=== PATIENT | female | born 1960 | race Caucasian/White ===

== ENCOUNTER 2024-07-11 13:09 | Outpatient (AMB) | payer OTHER, SELFPAY ==
--- NOTE | 2024-07-11 13:32 | HO.SPINEOV ---
Vital Signs 07/11/24 13:57 Height 5 ft 2.75 in Weight 155 lb BMI 27.7 Intake Visit Reasons: LBP Intake Note: Ms. Panda is here today c/o Low back pain that radiates to the right foot. [employer] Required: No Allergies oxycodone Allergy (Severe, Verified 07/11/24 13:58) Rash Physical Exam Vital Signs: BMI result Body Mass Index 27.7 Assessment & Plan Assessment & Plan (1) Lumbar disc herniation with radiculopathy: Code(s): M51.16 - Intervertebral disc disorders with radiculopathy, lumbar region Category: Medical Plan Dear colleague Thank you for referring Rochelle Panda to the office today with a chief complaint of severe right leg pain, numbness and weakness. HPI: This 63-year-old female has a history of manageable back pain where she sporadically throws her back out. Her clinical situation changed on 06/30/2024. She was watching a soccer game of her grand child when she stood up and twisted her back. She immediately felt a pop and was in bed for a week due to severe back pain radiating down to her right leg and top of her foot. This is the 1st time that she experience radicular pain. The pain is very difficult to manage. She uses multiple pain medications including gabapentin, ibuprofen, Suzetrigine, lidocaine patch and a muscle relaxant. She is going to start physical therapy on Tuesday but is pessimistic if she can perform this. A epidural steroid injection was tried for back pain in the past after which she developed an [place] crisis which result in long-term steroid therapy. Therefore, another steroid injection is not an option. She also notices that she has tingling and weakness of her right foot. Yesterday was the 1st time that she had paresthesias in both legs. 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 PMH: Hyperlipidemia, GERD, anxiety depression, asthma Medications: Albuterol p.r.n., atenolol, atorvastatin, furosemide, gabapentin, ibuprofen, lidocaine patches, methocarbamol, levocetirizine, sumatriptan Allergies: Oxycodone Social history: Nonsmoker Physical Exam: Pleasant female in obvious agony. She has an antalgic posterior towards the left side. Straight leg raise on the right is positive with radiating pain to the outside of her lower leg at 30 degrees. There is sensory loss in an L5 dermatome on the right side. There is a grade 4 minus out of 5 weakness of the extensor hallucis longus on the right side. She walks with an antalgic gait Radiological Studies: MRI of the lumbar spine done at [facility] on 07/02/2024 was compared to an MRI of 04/04/2023 and shows a new central L4-5 disc herniation that is eccentric towards the right side and compressing the right L5 nerve root. In addition, there is a stable L5-S1 degenerative disc disease. Impression/Plan: This patient is suffering from a L4-5 disc herniation compressing the right L5 nerve root causing radiculopathy with neurological deficits. I recommended a lumbar microdiskectomy. She is tentatively scheduled for 08/01/2024. She will obtain preoperative clearance from her primary care physician. Thank you for allowing me to participate in your patients care. total time spent was 50 minutes in counseling ,coordination of plan, personal review of imaging, surgical decision making and subsequent plan Poncho Araujo MD, PhD Sp[facility] Trained Neurosurgeon Director, [facility] Coding Level of Care Code New Pt Level 4 (36246) Diagnoses Lumbar disc herniation with radiculopathy M51.16
[2024-07-11 13:57] VITALS: BMI 27.7
--- OUTSIDE RECORDS SUMMARY | 2024-07-11 15:38 | XMS_ITS | Continuity of Care Document ---
Author Organization [facility] [address] [place] [address] Phone [phone] Care Team Providers Care Custodian Manager Name Role Phone Juan M Urbina PA-C Care Team Information Cost And Sales Record Supervisor [phone] Social History Type Date Description Comments Sex Unknown Medical Devices Description No Information Available Encounters Description No Information Available Assessments Description No Information Available Plan of Treatment No Information Available Functional Status Description No Information Available Mental Status Description No Information Available Referrals Description No Information Available
== END 2024-07-11 14:50 | disposition home or self-care (01) ==
LOC: HO.HNS 13:09
PROVIDERS: Visit Provider Neurological Surgery
DX: M51.16 Intervertebral disc disorders with radiculopathy, lumbar region (principal)
CPT/HCPCS: 99204

== ENCOUNTER → 2024-07-11 13:09 | Outpatient (BNVA) | payer OTHER, SELFPAY | PROVIDERS: Visit Provider Neurological Surgery ==

== ENCOUNTER 2024-08-15 06:46 | Day surgery (SDC) | payer OTHER, SELFPAY ==
[2024-07-31 12:45] VITALS: BMI 26.4
--- OUTSIDE RECORDS SUMMARY | 2024-07-31 15:06 | XMS_ITS | Data Portability ---
Author Organization [place] - [place] [facility], [facility] Contract Runner Address [address] [place] [address] Assessment No assessment recorded. Plan of Treatment Reminders Order Date Submit Date Provider Last Modified By Organization Details Last Modified Time Details Appointments None recorded. Lab streptococ cus group A RNA 2021 MECHE In-Office Order, Internal Use Only DO Not Attach Compendium DO Not Attach Compendium, Do Not Delete/merge, [id number] 09:51:48 culture, throat 2021 [facility] Draw Station [facility] [place], [address] [place], [address], 12:00:50 influenza virus A+B RNA, FAISAL+probe, isolate 2021 MECHE In-Office Order, Internal Use Only DO Not Attach Compendium DO Not Attach Compendium, Do Not Delete/merge, [id number] 09:51:17 respirator y syncytial virus RNA, QL, FAISAL, isolate 2021 MECHE In-Office Order, Internal Use Only DO Not Attach Compendium DO Not Attach Compendium, Do Not Delete/merge, [id number] 09:51:30 SARS CoV 2 RNA, QL, FAISAL+probe, respirator y specimen 2021 M[facility]HE In-Office Order, Internal Use Only DO Not Attach Compendium DO Not Attach Compendium, Do Not Delete/merge, [id number] 09:50:57 SARS CoV 2 RNA, QL, FAISAL+probe, respirator y specimen 2021 022 [email or web address] 4 In-Office Order, Internal Use Only DO Not Attach Compendium DO Not Attach Compendium, Do Not Delete/merge, [id number] 2 20:10:43 SARS CoV 2 RNA, QL, FAISAL+probe, respirator y specimen 2020 021 [email or web address] In-Office Order, Internal Use Only DO Not Attach Compendium DO Not Attach Compendium, Do Not Delete/merge, [id number] 14:37:31 SARS CoV 2 RNA (COVID-19) , QL, notereader-PCR, [place]. [id number], pt status: OUTPATIENT 2020 [facility], [address] [place] [address], [address], 19:21:11 Referral None recorded. Procedures None recorded. Surgeries None recorded. Imaging None recorded. Medication Orders None recorded. Patient TargetsNo targets recorded. Patient InstructionsNo instructions recorded. Reason for Referral None Reported. Results Created Date Observation Date Name Description Value Unit Range Abnormal Flag Note LastModifiedBy Organization Detail LastModifiedTime 08/31/19 22 08/29/2021 SARS COV 2 RNA(C OVID 19), QUALI TATIV E NAAT sars cov 2 RNA NOT DETECT ED not detect ed normal A Not Detec estrellita resul t means that SARS- CoV-2 RNA was not prese nt in the speci men above the limit of detec tion. A Not Detec estrellita resul t does not rule out the possi bilit y of COVID -19 and shoul d not be used as the sole basis for treat ment or patie nt manag ement decis ions. If COVID -19 is still suspe cted, based on expos ure histo ry toget her with other clini lewis findi ngs, re-te sting shoul d be consi dered in the yunior xt of clini lewis obser vatio ns and epide miolo gical data for patie nt manag ement decis ions. Test Metho d: Nucle ic Acid Ampli ficat ion Test inclu ding rever se trans cript ion polym erase chain react ion (RT-P CR) and trans cript ion media estrellita ampli ficat ion (TMA) . The test metho d meets the [place] Cente rs for Disea se Contr ol and preve ntion ([facility]) pre depar ture and arriv al requi remen t for viral test for COVID -19 dated 2020. Testi ng requi remen ts for rizwan lam may capps e with time. The patie nt is respo nsibl e for deter minin g the test requi remen ts for each natio n while they are rizwan lam. This test has been autho rized by the FDA under an Emerg ency Use Autho rizat ion (EUA) for use by autho rized labor atori es. Nichol le w the Fact Sheet s and FDA autho rized label ing avail able for healt h care provi ders and patie nts using the follo wing websi anna: https ://yesenia w.que stdia gnost ics.c om/ho me/Co vid-1 9/HCP /Ques tLDT/ fact- sheet .html https ://yesenia w.que stdia gnost ics.c om/ho me/Co vid-1 9/Pat ients /Ques tLDT/ fact- sheet .html Due to the curre nt publi c healt h emerg ency, [facility] is accep ting sampl es from appro priat e clini lewis sourc es colle cted using wide varie ty of swabs and trans port media for COVID -19. Not detec estrellita test resul ts deriv ed from speci mens recei erica in non- comme rcial ly manuf actur ed viral colle ction kits or those not yet autho rized by FDA for COVID -19 testi ng shoul d be cauti ously evalu ated and take extra preca ution s such as addit ional clini lewis monit oring , inclu ding colle ction of an addit ional speci men. Addit ional infor matio n about COVID -19 can be found at the [facility] websi te: www.Q uestD iagno stics .com/ Covid 19. NO COLLE CTION DATE RECEI ERICA. WE HAVE USED THE DATE THE SPECI MEN WAS RECEI ERICA BY THIS LABOR ATORY THE COLLE CTION DATE. IF THIS IS INCOR RECT, PLEAS E CONTA CT CLIEN T SERVI GABRIELLA. PHONE CHELLY R: [phone] Not Available [facility] [address] [place], [place], [address], 08/30/2021 08:12:02 04/13/20 21 04/16/2021 SARS COV 2 RNA(C OVID 19), QUALI TATIV E NAAT sars cov 2 RNA NOT DETECT ED not detect ed normal A Not Detec estrellita resul t means that SARS- CoV-2 RNA was not prese nt in the speci men above the limit of detec tion. A Not Detec estrellita resul t does not rule out the possi bilit y of COVID -19 and shoul d not be used as the sole basis for treat ment or patie nt manag ement decis ions. If COVID -19 is still suspe cted, based on expos ure histo ry toget her with other clini lewis findi ngs, re-te sting shoul d be consi dered in the yunior xt of clini lewis obser vatio ns and epide torie gical data for patie nt manag ement decis ions. Test Metho d: Nucle ic Acid Ampli ficat ion Test inclu ding rever se trans cript ion polym erase chain react ion (RT-P CR) and trans cript ion media estrellita ampli ficat ion (TMA) . The test metho d meets the US Cente rs for Disea se Contr ol and preve ntion (CDC) pre depar ture and arriv al requi remen t for viral test for COVID -19 dated 2020. Testi ng requi remen ts for trave genaro capps e with time. The patie nt is respo nsibl e for deter minin g the test requi remen ts for each natio n while they are trave ling. This test has been autho rized by the FDA under an Emerg ency Use Autho rizat ion (EUA) for use by autho rized labor atori es. Pleas e revie w the Fact Sheet s and FDA autho rized label ing avail able for healt h care provi ders and patie nts using the follo wing websi anna: https ://ww w.que stdia gnost ics.c om/ho me/Co vid-1 9/HCP /Ques tLDT/ fact- sheet .html https ://ww w.que stdia gnost ics.c om/ho me/Co vid-1 9/Pat ients /Ques tLDT/ fact- sheet .html Due to the curre nt publi c healt h emerg ency, [facility] is accep ting sampl es from appro priat e clini lewis sourc es colle cted using wide varie ty of swabs and trans port media for COVID -19. Not detec estrellita test resul ts deriv ed from speci mens recei erica in non- comme rcial ly manuf actur ed viral colle ction kits or those not yet autho rized by FDA for COVID -19 testi ng shoul d be cauti ously evalu ated and take extra preca ution s such as addit ional clini lewis monit oring , inclu ding colle ction of an addit ional speci men. Addit ional infor manas delgadillo about COVID -19 can be found at the [facility] websi te: www.Q uestD iagno [employer] .Achaogen/ Covid 19. Not Available [facility] [address] [place] [address] Jone B, [place], [address], 04/16/2021 19:21:11 04/13/20 21 04/13/2021 SARS CoV 2 RNA, QL, FAISAL+p robe, respi rator y speci men Unknown Analyte nose (bilat . mid-tu rbinat es) Not Available In-Office Order Internal Use Only DO Not Attach Compendium DO Not Attach Compendium, Do Not Delete/merge, [id number] 04/13/2021 14:19:29 04/13/20 21 04/13/2021 SARS CoV 2 RNA, QL, FAISAL+p robe, respi rator y speci men Unknown Analyte neg Not Available In-Off ice Order Internal Use Only DO Not Attach Compendium DO Not Attach Compendium, Do Not Delete/merge, [id number] 04/13/2021 14:19:29 08/19/19 22 08/19/2021 SARS COV 2 RNA(C OVID 19), QUALI TATIV E NAAT sars cov 2 RNA NOT DETECT ED not detect ed normal A Not Detec estrellita resul t means that SARS- CoV-2 RNA was not prese nt in the speci men above the limit of detec tion. A Not Detec estrellita resul t does not rule out the possi bilit y of COVID -19 and shoul d not be used as the sole basis for treat ment or patie nt manag ement decis ions. If COVID -19 is still suspe cted, based on expos ure histo ry toget her with other clini lewis findi ngs, re-te sting shoul d be consi dered in the yunior xt of clini lewis obser vatio ns and epide miolo gical data for patie nt manag ement decis ions. Test Metho d: Nucle ic Acid Ampli ficat ion Test inclu ding rever se trans cript ion polym erase chain react ion (RT-P CR) and trans cript ion media estrellita ampli ficat ion (TMA) . The test metho d meets the US Cente rs for Disea se Contr ol and preve ntion (CDC) pre depar ture and arriv al requi remen t for viral test for COVID -19 dated 2020. Testi ng requi remen ts for trave genaro capps e with time. The patie nt is respo nsibl e for deter minin g the test requi remen ts for each natio n while they are trave ling. This test has been autho rized by the FDA under an Emerg ency Use Autho rizat ion (EUA) for use by autho rized labor atori es. Pleas e revabram w the Fact Sheet s and FDA autho rized label ing avail able for healt h care provi ders and patie nts using the follo wing websi anna: https ://ww w.que stdia gnost ics.c om/ho me/Co vid-1 9/HCP /Ques tLDT/ fact- sheet .html https ://yesenia harley.nayana stdia gnost ics.c om/ho me/Co vid-1 9/Pat ients /Ques tLDT/ fact- sheet .html Due to the curre nt publi c healt h emerg ency, [facility] is accep ting sampl es from appro priat e clini lewis sourc es colle cted using wide varie ty of swabs and trans port media for COVID -19. Not detec estrellita test resul ts deriv ed from speci mens recei erica in non- comme rcial ly manuf actur ed viral colle ction kits or those not yet autho rized by FDA for COVID -19 testi ng shodaphne d be cauti ously evalu ated and take extra preca ution s such as addit ional clini lewis monit oring , inclu ding colle ction of an addit ional speci men. Addit ional infor manas delgadillo about COVID -19 can be found at the [facility] websi te: www.WishLink uestD [employer] .com/ Covid 19. Not Available [facility] [place] [facility] [address] [place] [address] B, [place], [address], 08/19/2021 23:00:33 08/20/19 22 08/19/2021 SARS CoV 2 RNA, QL, FAISAL+p robe, respi rator y speci men Unknown Analyte neg Not Available In-Off ice Order Internal Use Only DO Not Attach Compendium DO Not Attach Compendium, Do Not Delete/merge, [id number] 08/18/2021 15:59:13 08/20/19 22 08/19/2021 SARS CoV 2 RNA, QL, FAISAL+p robe, respi rator y speci men Unknown Analyte nose (bilat . mid-tu rbinat es) Not Available In-Office Order Internal Use Only DO Not Attach Compendium DO Not Attach Compendium, Do Not Delete/merge, [id number] 08/18/2021 15:59:13 09/05/19 22 09/05/2021 SARS COV 2 RNA(C OVID 19), QUALI TATIV E NAAT sars cov 2 RNA NOT DETECT ED not detect ed normal A Not Detec estrellita resul t means that SARS- CoV-2 RNA was not prese nt in the speci men above the limit of detec tion. A Not Detec estrellita resul t does not rule out the possi bilit y of COVID -19 and shoul d not be used as the sole basis for treat ment or patie nt manag ement decis ions. If COVID -19 is still suspe cted, based on expos ure histo ry toget her with other clini lewis findi ngs, re-te sting shoul d be consi dered in the yunior xt of clini lewis obser vatio ns and epide miolo gical data for patie nt manag ement decis ions. Test Metho d: Nucle ic Acid Ampli ficat ion Test inclu ding rever se trans cript ion polym erase chain react ion (RT-P CR) and trans cript ion media estrellita ampli ficat ion (TMA) . The test metho d meets the US Cente rs for Disea se Contr ol and preve ntion (CDC) pre depar ture and arriv al requi remen t for viral test for COVID -19 dated 2020. Testi ng requi remen ts for trave ling may capps e with time. The patie nt is respo nsibl e for deter minin g the test requi remen ts for each natio n while they are trave genaro. This test has been autho rized by the FDA under an Emerg ency Use Autho rizat ion (EUA) for use by autho rized labor atori es. Pleas e revie w the Fact Sheet s and FDA autho rized label ing avail able for healt h care provi ders and patie nts using the nicoo wing websi anna: https ://yesenia w.que stdia gnost ics.c om/ho me/Co vid-1 9/HCP /Ques tLDT/ fact- sheet .html https ://yesenia w.que stdia gnost ics.c om/ho me/Co vid-1 9/Pat ients /Ques tLDT/ fact- sheet .html Due to the curre nt publi c healt h emerg ency, [employer] [facility] is accep ting sampl es from appro priat e clini lewis sourc es colle cted using wide varie ty of swabs and trans port media for COVID -19. Not detec estrellita test resul ts deriv ed from speci mens recei erica in non- comme rcial ly manuf actur ed viral colle ction kits or those not yet autho rized by FDA for COVID -19 testi ng shoul d be cauti ously evalu ated and take extra preca ution s such as addit ional clini lweis monit oring , inclu ding colle ction of an addit ional speci men. Addit ional infor manas delgadillo about COVID -19 can be found at the [employer] [facility] websi te: www.WishLink uestD iagno [employer] .com/ Covid 19. Not Available [facility] [place] [facility] [address] [place], [place], [address], 09/05/2021 22:16:51 12/11/19 22 12/10/2021 SARS CoV 2 RNA, QL, FAISAL+p robe, respi rator y speci men Unknown Analyte nose (bilat . mid- rbinat es) Not Available In-Office Order Internal Use Only DO Not Attach Compendium DO Not Attach Compendium, Do Not Delete/merge, [id number] 12/10/2021 11:05:55 12/11/19 22 12/10/2021 SARS CoV 2 RNA, QL, FAISAL+p robe, respi rator y speci men Unknown Analyte neg Not Available In-Off ice Order Internal Use Only DO Not Attach Compendium DO Not Attach Compendium, Do Not Delete/merge, [id number] 12/10/2021 11:05:55 02/02/20 22 02/01/2022 SARS CoV 2 RNA, QL, FAISAL+p robe, respi rator y speci men Unknown Analyte nose (bilat . mid-tu rbinat es) Not Available In-Office Order Internal Use Only DO Not Attach Compendium DO Not Attach Compendium, Do Not Delete/merge, [id number] 02/01/2022 13:05:01 02/02/20 22 02/01/2022 SARS CoV 2 RNA, QL, FAISAL+p robe, respi rator y speci men Unknown Analyte neg Not Available In-Off ice Order Internal Use Only DO Not Attach Compendium DO Not Attach Compendium, Do Not Delete/merge, [id number] 02/01/2022 13:05:01 02/18/20 22 02/17/2022 strep tococ cus group A RNA Unknown Analyte neg Not Available In-Off ice Order Internal Use Only DO Not Attach Compendium DO Not Attach Compendium, Do Not Delete/merge, 02/17/2022 08:51:18 02/18/20 22 02/17/2022 respi rator y syncy tial virus RNA, QL, FAISAL, isola te Unknown Analyte neg Not Available In-Off ice Order Internal Use Only DO Not Attach Compendium DO Not Attach Compendium, Do Not Delete/merge, 02/17/2022 08:51:09 02/18/20 22 02/17/2022 influ marialuisa virus A+B RNA, FAISAL+p robe, isola te Unknown Analyte neg Not Available In-Off ice Order Internal Use Only DO Not Attach Compendium DO Not Attach Compendium, Do Not Delete/merge, 02/17/2022 08:51:00 02/18/20 22 02/17/2022 SARS CoV 2 RNA, QL, FAISAL+p robe, respi rator y speci men Unknown Analyte neg Not Available In-Off ice Order Internal Use Only DO Not Attach Compendium DO Not Attach Compendium, Do Not Delete/merge, 02/17/2022 08:50:51 02/18/20 22 02/17/2022 SARS CoV 2 RNA, QL, FAISAL+p robe, respi rator y speci men Unknown Analyte nose (bilat . mid- rbinat es) Not Available In-Office Order Internal Use Only DO Not Attach Compendium DO Not Attach Compendium, Do Not Delete/merge, 02/17/2022 08:50:51 Result Notes None recorded. Medical Equipment None Reported. Allergies No known drug allergies Medications Name Sig Start Date Stop Date Status Note LastModified by Organization Details LastModified Time celecoxib 200 mg capsule TAKE 1 CAPSULE BY MOUTH TWO TIMES A DAY NEEDED FOR BACK PAIN active Not Available Not Available No t Available doxycycline hyclate 100 mg capsule TAKE ONE CAPSULE BY MOUTH TWICE A DAY FOR 7 DAYS active Not Available Not Available No t Available trazodone 50 mg tablet TAKE ONE TABLET BY MOUTH AT BEDTIME NEEDED FOR INSOMNIA active Not Available Not Available No t Available azithromycin 250 mg tablet active Not Available Not Available Not Available Necon (28) 1 mg-35 mcg tablet active Not Available Not Available N ot Available alprazolam 1 mg tablet TAKE 1 TABLET BY MOUTH AT BEDTIME NEEDED FOR INSOMNIA active Not Available Not Available No t Available valacyclovir 1 gram tablet TAKE 1 TABLET BY MOUTH THREE TIMES A DAY active Not Available Not Available Not Available prednisone 20 mg tablet TAKE 1 TABLET BY MOUTH DAILY active Not Available Not Available Not Available clonazepam 0.5 mg tablet TAKE 1 TABLET BY MOUTH TWICE A DAY NEEDED FOR ANXIETY active Not Available Not Available No t Available estradiol 0.1 mg/24 hr semiweekly transdermal patch active Not Available Not Available Not Available atenolol 25 mg tablet active Not Available Not Available No t Available sumatriptan 50 mg tablet active Not Available Not Available Not Available valacyclovir 500 mg tablet TAKE TWO TABLETS BY MOUTH THREE TIMES A DAY active Not Available Not Available Not Available ciprofloxaci n 500 mg tablet active Not Available Not Available Not Available alprazolam 0.5 mg tablet active Not Available Not Available Not Available cephalexin 500 mg capsule TAKE ONE CAPSULE BY MOUTH THREE TIMES A DAY FOR 10 DAYS active Not Available Not Available Not Available lansoprazole 30 mg capsule,rafiq yed release active Not Available Not Available Not Available omeprazole 20 mg capsule,rafiq yed release TAKE ONE CAPSULE BY MOUTH EVERY DAY active Not Available Not Available No t Available norethindron e acetate 5 mg tablet TAKE 1 TABLET BY MOUTH DAILY active Not Available Not Available Not Available lorazepam 1 mg tablet TAKE 1 TABLET BY MOUTH AT BEDTIME NEEDED FOR INSOMNIA active Not Available Not Available No t Available zolpidem 10 mg tablet active Not Available Not Available No t Available albuterol sulfate HFA 90 mcg/actuatio n aerosol inhaler INHALE 2 PUFFS BY MOUTH EVERY 4-6 HOURS NEEDED FOR SHORTNESS OF BREAH OR WHEEZING active Not Available Not Available No t Available fluticasone propionate 50 mcg/actuatio n nasal spray,suspen noni active Not Available Not Available Not Available naproxen 500 mg tablet active Not Available Not Available No t Available Estrace 0.01% (0.1 mg/gram) vaginal cream active Not Available Not Available Not Available cyclobenzapr ine 5 mg tablet TAKE ONE TABLET BY MOUTH AT BEDTIME NEEDED FOR MUSCLE SPASM active Not Available Not Available No t Available Advair HFA 115 mcg-21 mcg/actuatio n aerosol inhaler INHALE 2 PUFFS BY MOUTH TWO TIMES A DAY active Not Available Not Available Not Available diclofenac 1 % topical gel active Not Available Not Available Not Available Katarina 0.05 mg/24 hr transdermal patch USE 1 PATACH TRANSDERMAL LY TWO TIMES A WEEK 90 DAYS active Not Available Not Available No t Available Vitals None Recorded Social History None recorded. Functional Status None recorded. Mental Status None recorded. Family History Nothing Reported. Medical History No medical history recorded. Gynecological HistoryNo gynecological history recorded. Obstetrics History GPAL:G 0 P 0 0 0 0 Immunizations Vaccine Type Date Status Note Provider Nam e and Address Organization Details Recorded Time COVID-19, mRNA, LNP-S, PF, 100 mcg/0.5mL dose or 50 mcg/0.25mL dose 04/17/2020 completed Diego Hodge [address] [place] [address], [phone] 04/17/2020 17:14:24 COVID-19, mRNA, LNP-S, PF, 100 mcg/0.5mL dose or 50 mcg/0.25mL dose 05/14/2020 completed Diego Hodge [address] [place] [address], [phone], [facility] 05/14/2020 15:49:00 COVID-19, mRNA, LNP-S, PF, 100 mcg/0.5mL dose or 50 mcg/0.25mL dose 02/20/2021 completed Jayson Quick RN [facility], [facility] 02/23/2021 20:38:45 COVID-19, mRNA, LNP-S, bivalent, PF, 50 mcg/0.5 mL or 25mcg/0.25 mL dose 01/08/2022 completed Diego Hodge [address] [place] [address], [phone], [facility] 01/08/2022 17:19:43 Influenza, split virus, quadrivalent, PF 02/08/2022 completed Diego Hodge [address] [place], [address], [facility] 02/08/2022 12:33:16 Influenza, MDCK, quadrivalent, PF 02/07/2018 completed Rody Mcguire LP N null, [facility] 02/01/2022 13:05:07 Influenza, MDCK, trivalent, PF 01/17/2013 completed Rody Mcguire LP N null, [facility] 02/01/2022 13:05:07 Past Encounters Encounter ID Performer Location Encounter Start Date Encounter Closed Date Diagnosis/Indication Diagnosis SNOMED-CT Code Diagnosis ICD10 Code Diagnosis Note [id number] NICOLA Rain [address] [address] 04/16/2020 13:39:54 04/16/2020 15:02:43 Administration of SARS-CoV-2 antigen vaccine [id number] Z23 [id number] Arlen Clements MD [address] [address] 05/14/2020 14:55:21 05/14/2020 15:56:20 Administration of SARS-CoV-2 antigen vaccine 052148773 Z23 [id number] Jayson Quick RN [address] [address] 02/23/2021 20:36:37 02/26/2021 08:45:52 Administration of SARS-CoV-2 antigen vaccine [id number] Z23 Pre-screen ing vaccinatio n form reviewed. Pt is here for 0.25ml Moderna Covid-19 Booster. Pt observed for 15 min post vaccinatio n. No adverse reaction noted. No f/u required. Covid-19 vaccinatio n card updated. [id number] Hayley Britt CMA [address] [address] 04/13/2021 14:10:23 04/13/2021 14:40:44 Suspected coronavirus infection 926660353 Z03.818 r/o COVID-19Pt symptomsso bvertigodi zzinessver y bad headachsor e throat (not so much today but yesterday) stuffy nosenasal congestion (sinus infection symptoms) deniesfeve r [id number] Diego [employer] Supervisor [address] [address] 01/08/2022 17:17:36 01/13/2022 14:47:49 Administration of SARS-CoV-2 mRNA vaccine [id number] Z23 [id number] Rody Mcguire LPN [address] [address] 01/29/2022 07:51:00 02/01/2022 14:01:33 Suspected COVID-19 [id number] Z03.768 [id number] Diego [employer] Supervisor [address] [address] 02/08/2022 12:30:46 02/08/2022 12:37:01 Influenza vaccine needed [id number] 106 Z23 [id number] Gricel Guerrero RN [address] [address] 02/17/2022 08:35:09 02/17/2022 10:02:47 Suspected COVID-19 172644838 Z20.822 Influenza- like illness 43530251 B34.9 Cough 64584744 R05.9 Pharyngitis 351789999 J0 2.9 Health Concerns Section Related Observation LastModified by Organization Detai ls LastModified Time None Recorded Concern Status LastModified by Organization Details LastModified Time None Recorded Advance Directives Directive None Recorded Payers Encounter Date Sequence Insurance Name Policy Number Policy Catherine Covered Member ID Catherine Member ID Guarantor Name 04/13/2021 1 [facility] [id number] Rochelle Panda [id number] Rochelle Panda 01/08/2022 1 [facility] [id number] Rochelle Panda [id number] Rochelle Panda 01/29/2022 1 [facility] [id number] Rochelle Panda [id number] Rochelle Ricky 02/08/2022 1 [facility] [id number] Rochelle Neves Farzad [id number] Rochelle Ricky 02/17/2022 1 [facility] [id number] Rochelle Ricky [id number] Rochelle Panda Notes Date Note Type Note Provider Name and Address Organization Details Recorded Time 2 text/htm l pt seen for employee flu shotinfluenza vaccine screening sheet completedadministered in left deltpt tolerated well Diego Hodge [address] [place] [address], [phone], [facility] [employer] [facility] 02/08/2022 12:33:26 OBGyn Episode No OBEpisode recorded.
--- OUTSIDE RECORDS SUMMARY | 2024-07-31 15:06 | XMS_ITS | Continuity of Care Document ---
Author Organization [facility] [address] [place] [address] Phone [phone] Care Team Providers Care Reinforcing Iron Worker Helper Name Role Phone Juan M Urbina PA-C Care Team Information Leather Goods Assembler [phone] Social History Type Date Description Comments Sex Unknown Medical Devices Description No Information Available Encounters Description No Information Available Assessments Description No Information Available Plan of Treatment No Information Available Functional Status Description No Information Available Mental Status Description No Information Available Referrals Description No Information Available
--- NOTE | 2024-08-14 09:35 | HO.ANESPROP2 ---
Documented by User: Vivian Ragland NP 08/14/24 09:38 HPI - Anesthesia Eval Consult details Narrative: 63yo F for Right L4-5 MicroLumbar discectomy Medically optimized per PCP COUNTS INCLUDE 234 BEDS AT [facility] Active Problems Active Problems: All Active Problems Lumbar disc herniation with radiculopathy (Acute) Past Medical History Medical History (Updated 07/31/24 @ 12:59 by Ewa Baeza, RN) Bilateral sensorineural hearing loss Pulmonary nodule Migraines Anxiety and depression Adrenal insufficiency Arthritis Back pain GERD (gastroesophageal reflux disease) Foot drop, right Numbness Insomnia Seasonal allergies Asthma HLD (hyperlipidemia) Surgical History Surgical History (Updated 07/31/24 @ 13:00 by Ewa Baeza, TRACY) History of tonsillectomy and adenoidectomy (1964) Hx laparoscopic cholecystectomy (03/2024) History of abdominoplasty (2015) Hx of colonoscopy Social History Social History (Updated 07/31/24 @ 12:47 by Ewa Baeza, TRACY) Household Members: None Housing: House Are you a primary patient care provider to a significant other at home: No (99 year old mom lives nearby) Do you presently have visiting nurse or other home services: No Patient Tobacco Use Status: Never used Tobacco e-Cigarette/Vaping Use: Never Used Use of substances other than those prescribed or required for medical reasons: No Have you been hit, kicked, punched, or otherwise hurt by someone within the past year? If so, by whom?: No Are you DNR?: No Advance Directives: No (will bring DOS) Advance Directives Information Provided: Yes Advance Directives on File: No Poor oral hygiene: No Meds Allergies Allergy/AdvReac Type Severity Reaction Status Date / Time No Known Allergies Allergy Verified 07/31/24 12:40 Home Medications ?Medication ?Instructions ?Recorded ?Confirmed ?Last Taken ?Type acetaminophen 500 mg capsule 1,000 mg PO QID PRN Pain 07/31/24 08/15/24 Unknown History albuterol sulfate 90 mcg/actuation 2 puff inhalation Q4-6H PRN 07/31/24 08/15/24 Unknown History aerosol inhaler Shortness Of Breath Or Wheezing alprazolam 1 mg tablet 1 mg PO DAILY PRN Insomnia 07/31/24 08/15/24 Unknown History atorvastatin 20 mg tablet 20 mg PO BEDTIME 07/31/24 08/15/24 Unknown History budesonide 160 mcg-glycopyr 9 2 inh inhalation BID 07/31/24 08/15/24 Unknown History mcg-formot 4.8 mcg/actuation HFA inhaler (Breztri Aerosphere) celecoxib 200 mg capsule 200 mg PO BID PRN Pain 07/31/24 08/15/24 08/05/24 History clonazepam 0.5 mg tablet 0.5 mg PO DAILY PRN Anxiety 07/31/24 08/15/24 Unknown History cyclobenzaprine 5 mg tablet 5 mg PO Q8H PRN muscle spasm 07/31/24 08/15/24 Unknown History furosemide 20 mg tablet 20 mg PO DAILY PRN edema 07/31/24 08/15/24 Unknown History ibuprofen 600 mg tablet (IBU) 600 mg PO TID PRN Pain 07/31/24 08/15/24 08/05/24 History omeprazole 20 mg capsule,delayed 20 mg PO QAM 07/31/24 08/15/24 08/15/24 History release trazodone 50 mg tablet 100 mg PO BEDTIME PRN insomnia 07/31/24 08/15/24 Unknown History Exam Height,Weight and Vital Signs: Height 5 ft 2.75 in Weight 67.132 kg Pertinent Lab Results Pertinent Lab Results: 07/2024 CBC, INR, CMP WNL Narrative Narrative: EKG 07/2024 NSR PVCs Old infarct Assessment and Plan Assessment Anesthesia Assessment: Chart Reviewed Documented by User: Yuliana Taylor MD 08/15/24 08:55 PMF Past Medical History Medical History (Updated 07/31/24 @ 12:59 by Ewa Baeza, TRACY) Bilateral sensorineural hearing loss Pulmonary nodule Migraines Anxiety and depression Adrenal insufficiency Arthritis Back pain GERD (gastroesophageal reflux disease) Foot drop, right Numbness Insomnia Seasonal allergies Asthma HLD (hyperlipidemia) Family History Family history of problems with anesthesia: No Surgical History Surgical History (Updated 07/31/24 @ 13:00 by Ewa Baeza RN) History of tonsillectomy and adenoidectomy (1964) Hx laparoscopic cholecystectomy (03/2024) History of abdominoplasty (2015) Hx of colonoscopy History of Problems with Anesthesia: No Social History Social History (Updated 07/31/24 @ 12:47 by Ewa Baeza RN) Household Members: None Housing: House Are you a primary patient care provider to a significant other at home: No (99 year old mom lives nearby) Do you presently have visiting nurse or other home services: No Patient Tobacco Use Status: Never used Tobacco e-Cigarette/Vaping Use: Never Used Use of substances other than those prescribed or required for medical reasons: No Have you been hit, kicked, punched, or otherwise hurt by someone within the past year? If so, by whom?: No Are you DNR?: No Advance Directives: No (will bring DOS) Advance Directives Information Provided: Yes Advance Directives on File: No Poor oral hygiene: No Meds Allergies Allergy/AdvReac Type Severity Reaction Status Date / Time No Known Allergies Allergy Verified 07/31/24 12:40 Home Medications ?Medication ?Instructions ?Recorded ?Confirmed ?Last Taken ?Type acetaminophen 500 mg capsule 1,000 mg PO QID PRN Pain 07/31/24 08/15/24 Unknown History albuterol sulfate 90 mcg/actuation 2 puff inhalation Q4-6H PRN 07/31/24 08/15/24 Unknown History aerosol inhaler Shortness Of Breath Or Wheezing alprazolam 1 mg tablet 1 mg PO DAILY PRN Insomnia 07/31/24 08/15/24 Unknown History atorvastatin 20 mg tablet 20 mg PO BEDTIME 07/31/24 08/15/24 Unknown History budesonide 160 mcg-glycopyr 9 2 inh inhalation BID 07/31/24 08/15/24 Unknown History mcg-formot 4.8 mcg/actuation HFA inhaler (Breztri Aerosphere) celecoxib 200 mg capsule 200 mg PO BID PRN Pain 07/31/24 08/15/24 08/05/24 History clonazepam 0.5 mg tablet 0.5 mg PO DAILY PRN Anxiety 07/31/24 08/15/24 Unknown History cyclobenzaprine 5 mg tablet 5 mg PO Q8H PRN muscle spasm 07/31/24 08/15/24 Unknown History furosemide 20 mg tablet 20 mg PO DAILY PRN edema 07/31/24 08/15/24 Unknown History ibuprofen 600 mg tablet (IBU) 600 mg PO TID PRN Pain 07/31/24 08/15/24 08/05/24 History omeprazole 20 mg capsule,delayed 20 mg PO QAM 07/31/24 08/15/24 08/15/24 History release trazodone 50 mg tablet 100 mg PO BEDTIME PRN insomnia 07/31/24 08/15/24 Unknown History Exam Airway Mallampati Class: II TM Dist: >3cm Neck ROM: Full Assessment and Plan Assessment Anesthesia Assessment: Anesthesia Plan Discussed Final Anesthetic Review Family History of Problems with Anesthesia: No History of Problems with Anesthesia: No NPO: Yes ASA Class: II Final Preanesthetic Review: No Changes in Pt Med Stat, Meds/Allgs Chart Reviewed, Consent Obtained/Reviewed and Anes Risks/Benef Reviewed Patient Risk: Low Procedure Risk: Intermediate Anesthetic Plan Anesthetic Plan: GA Disposition: Standard PACU
[2024-08-15] VITALS (13 sets, daily range): BP systolic 109–124; BP diastolic 61–77; PULSE 63–89; RESP 14–16; TEMP 36.2–36.8; O2SAT 93–98; BMI 27.6
--- NOTE | ~2024-08-15 | FL_ITS ---
EXAMINATION: FL GUIDANCE ONLY HISTORY: L4-5 DISCECTOMY COMPARISON: None available. TECHNIQUE: Fluoroscopy time: 8.7 seconds. Cumulative Dose: 2.5838 mGy. DAP: 0.8935 mGym2 Images: 2. FINDINGS: Fluoroscopic spot films of the lumbar spine in the lateral projection demonstrate a probe directed toward the L4-5 intervertebral disc space from a posterior approach. FL/FL guidance in OR IMPRESSION: Fluoroscopy during procedure. Please see procedure report for additional information. Electronically signed by: Bill Swan MD 08/15/2024 05:25 PM EDT
--- NOTE | 2024-08-15 06:54 | MHC.SHP ---
Pre-Procedural Eval Section A - 24 Hr Update-Section A only Date of Service: 08/15/24 Section B - Complete if H&P > 30 days Chief Complaint: Intervertebral disc disorders with radiculopathy, Allergies: Allergies Allergy/AdvReac Type Severity Reaction Status Date / Time No Known Allergies Allergy Verified 07/31/24 12:40 Review of Systems Sugical H&P ROS: Negative: Constitution, Cardiovascular, Respiratory, Neurological, Psychiatric, Hem-Onc, Allergic/Immunologic, Gastrointestinal, Genitourinary, Musculoskeletal, Integumentary, Endocrine and Eyes/Ears/Nose/Throat Exam Surgical H&P Exam: Not Evaluated: HEENT, Not Evaluated: Heart, Not Evaluated: Lungs, Not Evaluated: Extremities, Not Evaluated: Abdomen, Not Evaluated: Skin and Not Evaluated: Neurological Exam Comment: The patient is awake, alert, no acute distress. Proposed surgical incision site is clean, dry, with no signs of recent injury. Plan Diagnosis/Plan: Unchanged I have reviewed the history and physical and performed a pertinent physical examination on my patient. No changes have occurred unless specified. Plan remains the same, right L4-5 microdiskectomy Time Spent With Patient Time: Total time managing care of this patient today __12__ minutes.
[2024-08-15] MEDS: Gabapentin 300 MG CAPSULE PO (07:40)
[2024-08-15] MEDS: methocarbamoL 750 MG TABLET PO (07:40)
[2024-08-15] MEDS: Lactated Ringers 1,000 ML 100 ML IVCONT (07:40)
[2024-08-15] MEDS: ceFAZolin Sodium/Dextrose,Iso 2 GM/50 ML PIGGYBACK IV (09:55)
[2024-08-15] MEDS: Acetaminophen 1,000 MG/100 ML PIGGYBACK 400 MG IV (10:06)
--- NOTE | 2024-08-15 10:38 | W.PM.OPN ---
Operative Note Operative Note Date of Service: 08/15/24 Narrative: Preoperative diagnosis: Right L5 lumbar radiculopathy due to disc herniation Postoperative diagnosis: Same Procedure: Right L4-5 microdiskectomy with microscope Surgeon: Poncho Araujo MD, PhD Jute Bag Cutting Machine Operator: BRADFORD Farias This 63-year-old female suffering from a right lumbar radiculopathy due to a central disc herniation eccentric towards the right compressing the right L5 nerve root. The patient was offered a lumbar microdiskectomy to decompress the nerve root. The procedure complications were explained. The patient was consented. The patient was brought to the operating room and endotracheally intubated. The patient was turned in a prone position on the Keshawn frame. Prepping and draping was done followed by time-out. A mid lumbar incision was made followed by release of the paravertebral muscles on the right side to expose the L4-5 interspace. An intraoperative x-rays obtained to confirm the correct level. The microscope was brought in. A L4 laminotomy was done followed by opening of the flavum ligament. The L5 nerve root was identified and retracted medially to expose the L4-5 disc space. I could palpate a central disc herniation medial from the L5 nerve root, which I carefully removed with a pituitary. The disc space was inspected and any residual disc fragments were removed. This resulted in an excellent decompression of the L5 nerve root. Hemostasis was done. The microscope was removed. Marcaine was injected intramuscularly.The incision was closed in two layers. Steri-Strips used to approximate the incision. An op-site were taken there was used to cover the incision. All sponge and needle counts were correct. Patient was extubated and transported in stable condition to recovery room. this procedure was done with the aid of a physician training and development assistant who performed the initial exposure until the microscope was brought in and performed the closure of the incision. Anesthesia: General Blood loss: Minimal Complications: None Specimen: None Surgical time: 45 minutes Disposition: Discharge home
--- NOTE | 2024-08-15 10:47 | PM.DS ---
DS: Providers Provider Date of Service: 08/15/24 Date of discharge: 08/15/24 Primary care physician: Nonstaff Physician DS: Summary Time Attestation Discharge Coordination Time (in mins): 12 Quality: Safe Use of Opioids Does Pt have an Active Cancer Diagnosis on the Problem List?: No Quality: Stroke Does the patient have a stroke diagnosis?: No Physical Exam Vital Signs: Vital Signs: Last Vital Signs Temp 97.9 F 08/15/24 07:19 Pulse 69 08/15/24 07:19 Resp 14 08/15/24 07:19 BP 109/71 08/15/24 07:19 Pulse Ox 96 08/15/24 07:19 O2 Del Method Room Air 08/15/24 07:19 BMI result Body Mass Index 27.6 Discharge Plan Discharge Patient Disposition: Home, Self-Care Referrals: Physician,Nonstaff [Primary Care Provider] - 1 Week Discharge Medications: New oxycodone 5 mg tablet 5 mg PO Q6H PRN (Reason: pain) Qty: 30 0RF Rx Instructions: Partial Fill upon patient request. Continued atorvastatin 20 mg tablet 20 mg PO BEDTIME trazodone 50 mg tablet 100 mg PO BEDTIME PRN (Reason: insomnia) alprazolam 1 mg tablet 1 mg PO DAILY PRN (Reason: Insomnia) clonazepam 0.5 mg tablet 0.5 mg PO DAILY PRN (Reason: Anxiety) omeprazole 20 mg capsule,delayed release(DR/EC) 20 mg PO QAM furosemide 20 mg tablet 20 mg PO DAILY PRN (Reason: edema) Patient Comments: has it but hasn't used since last summer (2023) when she had some ankle swelling cyclobenzaprine 5 mg tablet 5 mg PO Q8H PRN (Reason: muscle spasm) acetaminophen 500 mg Capsule 1,000 mg PO QID PRN (Reason: Pain) albuterol sulfate 90 mcg/actuation Hfa Aerosol Inhaler 2 puff INHALATION Q4-6H PRN (Reason: Shortness Of Breath Or Wheezing) Breztri Aerosphere 160-9-4.8 mcg/actuation Hfa Aerosol Inhaler 2 inh INHALATION BID Patient Comments: hasn't used in months Held celecoxib 200 mg capsule 200 mg PO BID PRN (Reason: Pain) Hold Instructions: Resume on 08/16/24. ibuprofen [IBU] 600 mg tablet 600 mg PO TID PRN (Reason: Pain) Hold Instructions: Resume on 08/16/24. Discharge Orders: Discharge Order (Routine); Ordered 08/15/24 Ordered By: Jethro Porter Diet: Advance to usual diet Activity on Discharge: As tolerated Activity Restrictions/Additional Instructions: After your spinal surgery we ask you to observe the following restrictions/guidelines: Activity: It is normal to feel some discomfort as you increase your activity, but that will improve with time. We ask you avoid heavy lifting or acitivities that cause pain. As a general rule, 8lbs is a safe limit for lifting right after surgery. Walk as much as you feel comfortable but not to exhaustion. You will feel extra tired the first few days after surgery. Stay well hydrated. It is OK to walk up and down stairs You may return to driving when you are off narcotics (such as vicodin, oxycodone, dilaudid, etc), and you are back to normal functional capacity. If you have any concerns please check with office before driving. Return to work is specific to each patient and each surgery, so please speak with your doctor/PA at first follow up. Please bring paperwork such as FMLA at that time if you need it filled out. Medications: We recommend you take 1,000mg Tylenol every 8 hours for the first few weeks after surgery, if you do not have any liver issues and can tolerate this medication. Do not exceed 4,000mg daily. We will give you a short supply of narcotics after surgery (usually one weeks worth). If you need more please call the office but do not use more than prescribed. You will need to give our office 48 hours notice if you need narcotics refilled and we do not fill narcotics on weekends or evenings. If you are on a narcotic, it is a good idea to take a stool softener such as colace or senna to avoid constipation If you take blood thinner such as aspirin, Plavix, Coumadin, Effient, Eliquis etc for conditions such as Afib, DVT, Pulmonary embolus, coronary disease, stents etc please speak with your surgeon about specific details as to when you can resume these medications. You can resume NSAIDs on post op day 1 (eg: Motrin, Naproxen, etc). Follow up: Please call the office, , after surgery to arrange a 3 week follow up for wound check. Wound Care: You may remove your dressing on the first day after surgery. ?You may ?leave open to air. Please do not remove the steri strips underneath. they will fall off on their own in one week. IT IS NORMAL FOR THE WOUND TO OOZE OR BE BLOODY FOR A FEW DAYS AFTER SURGERY. ?IF THIS HAPPENS JUST PLACE NEW DRESSING OVER IT TO AVOID STAINING CLOTHES. You may shower on post op day # 1 We ask that you do not let the water soak the wound. If it does get wet, just towel dry lightly. Please do not scrub your incision or place any type of chemical/ointment on the wound. No tub baths, pools or jacuzzis for one month. If you have any leaking or redness from your wound, or fevers, please call the office. Print Language: Setswana
[2024-08-15] MEDS: fentaNYL citrate/PF 100 MCG/2 ML VIAL 50 MCG IVPUSH (11:31)
[2024-08-15] MEDS: oxyCODONE HCl Immed Release 5 MG TABLET PO (12:30)
== END 2024-08-15 13:48 | disposition home or self-care (01) ==
PROVIDERS: Visit Provider Neurological Surgery
PROC: (CPT 63030; principal; 2024-08-15 10:00)
DX: M51.16 Intervertebral disc disorders with radiculopathy, lumbar region (principal); E78.5 Hyperlipidemia, unspecified; J45.909 Unspecified asthma, uncomplicated; F41.9 Anxiety disorder, unspecified; F32.A Depression, unspecified; Z79.1 Long term (current) use of non-steroidal anti-inflammatories (NSAID); Z79.899 Other long term (current) drug therapy; Z88.5 Allergy status to narcotic agent
CPT/HCPCS: 63030; J0131; J0690; J1100; J1885; J2003; J2405; J2704; J3010

== ENCOUNTER → 2024-08-15 06:46 | Outpatient (BNV) | payer OTHER, SELFPAY | PROVIDERS: Visit Provider Neurological Surgery | DX: M51.16 Intervertebral disc disorders with radiculopathy, lumbar region (principal) | CPT/HCPCS: 63030; 99499 ==

== ENCOUNTER 2024-09-05 14:17 | Outpatient (AMB) | payer OTHER, SELFPAY ==
--- OUTSIDE RECORDS SUMMARY | 2024-09-05 14:39 | XMS_ITS | Continuity of Care Document ---
Author Organization [facility] [address] [place] [address] Phone [phone] Care Team Providers Care Selling Underwriter Name Role Phone Juan M Urbina PA-C Care Team Information Tire Bagger [phone] Social History Type Date Description Comments Sex Unknown Medical Devices Description No Information Available Encounters Description No Information Available Assessments Description No Information Available Plan of Treatment No Information Available Functional Status Description No Information Available Mental Status Description No Information Available Referrals Description No Information Available
--- OUTSIDE RECORDS SUMMARY | 2024-09-05 14:39 | XMS_ITS | Data Portability ---
Author Organization [place] [facility] [employer] [facility], [facility] Qa Engineer Address [address] [place] [address] Assessment No assessment recorded. Plan of Treatment Reminders Order Date Submit Date Provider Last Modified By Organization Details Last Modified Time Details Appointments None recorded. Lab streptococ cus group A RNA 2021 MECHE In-Office Order, Internal Use Only DO Not Attach Compendium DO Not Attach Compendium, Do Not Delete/merge, [id number] 09:51:48 culture, throat 2021 [facility] Draw Station [facility] [place], [address] [place], [address], 12:00:50 influenza virus A+B RNA, FAISAL+probe, isolate 2021 MECHE In-Office Order, Internal Use Only DO Not Attach Compendium DO Not Attach Compendium, Do Not Delete/merge, [id number] 09:51:17 respirator y syncytial virus RNA, QL, FAISAL, isolate 2021 MECHE In-Office Order, Internal Use Only DO Not Attach Compendium DO Not Attach Compendium, Do Not Delete/merge, [id number] 09:51:30 SARS CoV 2 RNA, QL, FAISAL+probe, respirator y specimen 2021 MECHE In-Office Order, Internal Use Only DO Not Attach Compendium DO Not Attach Compendium, Do Not Delete/merge, [id number] 09:50:57 SARS CoV 2 RNA, QL, FAISAL+probe, respirator y specimen 2021 022 [email or web address] 4 In-Office Order, Internal Use Only DO Not Attach Compendium DO Not Attach Compendium, Do Not Delete/merge, [id number] 2 20:10:43 SARS CoV 2 RNA, QL, FAISAL+probe, respirator y specimen 2020 021 [email or web address] In-Office Order, Internal Use Only DO Not Attach Compendium DO Not Attach Compendium, Do Not Delete/merge, [id number] 14:37:31 SARS CoV 2 RNA (COVID-19) , QL, chancery clerk-PCR, respirator [place]. [id number], pt status: OUTPATIENT 2020 XMS [facility], [address] [place] [address], [address], 19:21:11 Referral None recorded. Procedures None recorded. [...] Disea se Contr ol and preve ntion ([facility]) pre depar ture and arriv al requi [...] CLIEN T SERVI GABRIELLA. PHONE CHELLY R: [phone] Not Available [facility] [address] Jone Jose, [place], [address], 08/30/2021 08:12:02 04/13/20 21 04/16/2021 SARS COV [...] ostic s websi te: www.Q uestD iagno BemDireto .MarketMeSuite/ Covid 19. Not Available [facility] [address] [place] [address] Jone B, [place], [address], 04/16/2021 19:21:11 04/13/20 21 04/13/2021 SARS CoV 2 RNA, QL, FAISAL+p robe, respi rator y speci men Unknown Analyte nose (bilat . mid-tu rbinat es) Not Available In-Office Order Internal Use Only DO Not Attach Compendium DO Not Attach Compendium, Do Not Delete/merge, [id number] 04/13/2021 14:19:29 04/13/20 21 04/13/2021 SARS CoV 2 RNA, QL, FAISAL+p robe, respi rator y speci men Unknown Analyte neg Not Available In-Off ice Order Internal Use Only DO Not Attach Compendium DO Not Attach Compendium, Do Not Delete/merge, [id number] 04/13/2021 14:19:29 08/19/19 22 08/19/2021 SARS COV [...] the [facility] ostic s websi te: www.[employer] uestD Jammito BemDireto .com/ Covid 19. Not Available [facility] [place] [facility] [address] [place] [address] B, [place], [address], 08/19/2021 23:00:33 08/20/19 22 08/19/2021 SARS CoV 2 RNA, QL, FAISAL+p robe, respi rator y speci men Unknown Analyte neg Not Available In-Off ice Order Internal Use Only DO Not Attach Compendium DO Not Attach Compendium, Do Not Delete/merge, [id number] 08/18/2021 15:59:13 08/20/19 22 08/19/2021 SARS CoV 2 RNA, QL, FAISAL+p robe, respi rator y speci men Unknown Analyte nose (bilat . mid-tu rbinat es) Not Available In-Office Order Internal Use Only DO Not Attach Compendium DO Not Attach Compendium, Do Not Delete/merge, [id number] 08/18/2021 15:59:13 09/05/19 22 09/05/2021 SARS COV [...] nt publi c healt h emerg ency, Vaccinogen ostic s is accep ting sampl es [...] COVID -19 can be found at the [employer] ostic s websi te: www.[employer] uestD iagno BemDireto .com/ Covid 19. Not Available [facility] [place] [facility] [address] Jone B, [place], [address], 09/05/2021 22:16:51 12/11/19 22 12/10/2021 SARS CoV 2 RNA, QL, FAISAL+p robe, respi rator y speci men Unknown Analyte nose (bilat . mid- rbinat es) Not Available In-Office Order Internal Use Only DO Not Attach Compendium DO Not Attach Compendium, Do Not Delete/merge, [id number] 12/10/2021 11:05:55 12/11/19 22 12/10/2021 SARS CoV 2 RNA, QL, FAISAL+p robe, respi rator y speci men Unknown Analyte neg Not Available In-Off ice Order Internal Use Only DO Not Attach Compendium DO Not Attach Compendium, Do Not Delete/merge, [id number] 12/10/2021 11:05:55 02/02/20 22 02/01/2022 SARS CoV 2 RNA, QL, FAISAL+p robe, respi rator y speci men Unknown Analyte nose (bilat . mid-tu rbinat es) Not Available In-Office Order Internal Use Only DO Not Attach Compendium DO Not Attach Compendium, Do Not Delete/merge, [id number] 02/01/2022 13:05:01 02/02/20 22 02/01/2022 SARS CoV 2 RNA, QL, FAISAL+p robe, respi rator y speci men Unknown Analyte neg Not Available In-Off ice Order Internal Use Only DO Not Attach Compendium DO Not Attach Compendium, Do Not Delete/merge, [id number] 02/01/2022 13:05:01 02/18/20 22 02/17/2022 strep tococ [...] 50 mcg/0.25mL dose 04/17/2020 completed Diego Hodge [address] [place] [address], [phone] [employer] [facility] 04/17/2020 17:14:24 COVID-19, mRNA, LNP-S, PF, 100 mcg/0.5mL dose or 50 mcg/0.25mL dose 05/14/2020 completed Diego Hodge [address] [place] [address], [phone], [facility] 05/14/2020 15:49:00 COVID-19, mRNA, LNP-S, PF, 100 mcg/0.5mL dose or 50 mcg/0.25mL dose 02/20/2021 completed Jayson Quick RN [facility] [employer] [facility] 02/23/2021 20:38:45 COVID-19, mRNA, LNP-S, bivalent, PF, 50 mcg/0.5 mL or 25mcg/0.25 mL dose 01/08/2022 completed Diego Hodge [address] [place] [address], [phone], [facility] 01/08/2022 17:19:43 Influenza, split virus, quadrivalent, PF 02/08/2022 completed Diego Hodge [address] [place], [address], [facility] 02/08/2022 12:33:16 Influenza, MDCK, quadrivalent, PF 02/07/2018 completed Rody Mcguire LP N null, [facility] 02/01/2022 13:05:07 Influenza, MDCK, trivalent, PF 01/17/2013 completed Rody Mcguire LP N null, [facility] 02/01/2022 13:05:07 Past Encounters Encounter ID Performer Location Encounter Start Date Encounter Closed Date Diagnosis/Indication Diagnosis SNOMED-CT Code Diagnosis ICD10 Code Diagnosis Note [id number] Madi Steward MD [address] [address] 04/16/2020 13:39:54 04/16/2020 15:02:43 Administration of SARS-CoV-2 antigen vaccine [id number] Z23 [id number] Arlen Clements MD [address] [address] 05/14/2020 14:55:21 05/14/2020 15:56:20 Administration of SARS-CoV-2 antigen vaccine 728838317 Z23 [id number] NICOLA Gomez [address] [address] 02/23/2021 20:36:37 02/26/2021 08:45:52 Administration of SARS-CoV-2 antigen vaccine 908119709 Z23 Pre-screen ing vaccinatio n form reviewed. Pt is here for 0.25ml Moderna Covid-19 Booster. Pt observed for 15 min post vaccinatio n. No adverse reaction noted. No f/u required. Covid-19 vaccinatio n card updated. [id number] Arlen Clements MD [address] [address] 04/13/2021 14:10:23 04/13/2021 14:40:44 Suspected coronavirus infection 883579639 Z03.818 r/o COVID-19Pt symptomsso bvertigodi zzinessver y bad headachsor e throat (not so much today but yesterday) stuffy nosenasal congestion (sinus infection symptoms) deniesfeve r [id number] Arlen Clements MD [address] [address] 01/08/2022 17:17:36 01/13/2022 14:47:49 Administration of SARS-CoV-2 mRNA vaccine 0125719314 Z23 [id number] Minerva Chinchilla [facility] [address] [address] 01/29/2022 07:51:00 02/01/2022 14:01:33 Suspected COVID-19 713633326 Z03.330 [id number] Arlen Clements MD [address] [address] 02/08/2022 12:30:46 02/08/2022 12:37:01 Influenza vaccine needed [id number] 106 Z23 [id number] Sena Blake [facility] [address] [address] 02/17/2022 08:35:09 02/17/2022 10:02:47 Suspected COVID-19 570909902 Z20.822 Influenza- like illness 32490542 B34.9 Cough 39077975 R05.9 Pharyngitis 392631271 J0 2.9 Health Concerns Section Related Observation LastModified by Organization Detai ls LastModified Time None Recorded Concern Status LastModified by Organization Details LastModified Time None Recorded Advance Directives Directive None Recorded Payers Encounter Date Sequence Insurance Name Policy Number Policy Catherine Covered Member ID Catherine Member ID Guarantor Name 04/13/2021 1 [facility]) [id number] Rochelle Panda [id number] Rochelle Panda 01/08/2022 1 [facility] [id number] Rochelle Panda [id number] Rochelle Panda 01/29/2022 1 [facility] [id number] Rochelle Panda [id number] Rochelle Panda 02/08/2022 1 [facility] [id number] Rochelle Neves Farzad [id number] Rochelle Ricky 02/17/2022 1 [facility] [id number] Rochelle Ricky [id number] Rochelle Panda Notes Date Note Type Note Provider Name and Address Organization Details Recorded Time 2 text/htm l pt seen for employee flu shotinfluenza vaccine screening sheet completedadministered in left deltpt tolerated well Diego Hodge [address] [place] [address], [phone], [facility] [employer] [facility] 02/08/2022 12:33:26 OBGyn Episode No OBEpisode recorded.
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
== END 2024-09-05 15:08 | disposition home or self-care (01) ==
LOC: HO.HNS 14:18
PROVIDERS: Visit Provider Physician Assistant
DX: M51.16 Intervertebral disc disorders with radiculopathy, lumbar region (principal)
CPT/HCPCS: 99024

== ENCOUNTER 2024-10-15 11:20 | Outpatient (AMB) | payer OTHER, SELFPAY ==
--- NOTE | 2024-10-15 11:42 | HO.SPINEOV ---
Intake Visit Reasons: 2nd post op Intake Note: Ms. Panda is here today for her 2nd post op. Welder Assembler Required: No Allergies No Known Allergies Allergy (Verified 07/31/24 12:40) Assessment & Plan Assessment & Plan (1) Lumbar disc herniation with radiculopathy: Code(s): M51.16 - Intervertebral disc disorders with radiculopathy, lumbar region Category: Medical Plan Procedure: Right L4-5 microdiskectomy Rochelle is a pleasant 63-year-old female who comes in today for her 2nd postoperative visit after having a L4-5 right-sided microdiskectomy completed by Dr. Araujo. Thankfully, she continues to do very well from her surgery. She is about 9 weeks out right now, and states that she has little to no low back or leg pain. She plans to return to work tomorrow, and states that she feels ready to do so. She asked several questions regarding the postoperative healing course, including returned to activity restrictions, all of which I answered to the best of my ability. No new neurological deficits. The patient ambulates well and rises from a seated position without difficulty. Rochelle is doing very well since her microdiskectomy surgery, and there is no need for continued routine follow up with her. She may follow up on an as-needed basis. Jethro Araujo MD,PhD [facility] Coding Level of Care Code Global (41058) Diagnoses Lumbar disc herniation with radiculopathy M51.16
--- OUTSIDE RECORDS SUMMARY | 2024-10-15 12:12 | XMS_ITS | Continuity of Care Document ---
Author Organization [facility] [address] [place] [address] Phone [phone] Care Team Providers Care Party Supply Specialist Name Role Phone Juan M Urbina PA-C Care Team Information General Cargo Clerk [phone] Social History Type Date Description Comments Sex Female Sex Unknown Medical Devices Description No Information Available Encounters Description No Information Available Assessments Description No Information Available Plan of Treatment No Information Available Functional Status Description No Information Available Mental Status Description No Information Available Referrals Description No Information Available
== END 2024-10-15 12:08 | disposition home or self-care (01) ==
LOC: HO.HNS 11:20
PROVIDERS: Visit Provider Physician Assistant
DX: M51.16 Intervertebral disc disorders with radiculopathy, lumbar region (principal)
CPT/HCPCS: 99024